=== PATIENT | male | born 1930 | race Caucasian/White ===

== ENCOUNTER → 2016-11-22 | Outpatient (REF) | payer MEDICARE, BC ==
[~2016-11-22] MED LIST: ACET50TA PO; ATOR1TAB19 PO; DIOVAN PO; HYDR12CA PO; LIPI10TA PO; OMEP40CA2 PO
== END ==
LOC: M LAB REF 17:09
PROVIDERS: ATTEND Internal Medicine Nephrology
DX: N18.3 Chronic kidney disease, stage 3 (moderate) (principal)